=== PATIENT | male | born 1955 | race African-American/Black ===

== ENCOUNTER 2017-10-19 19:25 | Inpatient (IN) ==
[2017-10-19 21:11] LABS: Basophils % 0.1 % (0.0-0.8); Hematocrit 34.3 VOL% (42.0-52.0); Hemoglobin 11.2 GM/DL (14.0-18.0); Immature Granulocytes % 2.2 %; Immature Granulocytes Absolute 0.23 #; Lymphocytes # 0.2 10*3/uL (1.4-4.0); Mean Corpuscular HGB Conc 32.7 GM/DL (32-36); Mean Corpuscular Hemoglobin 32 PG (27-34); Mean Corpuscular Volume 96.9 FL (87-102); Mean Platelet Volume 11.2 FL (9.6-12.0); Monocytes # 0.4 10*3/uL (0.11-0.8); Neutrophils # 9.4 10*3/uL (1.4-7.4); Neutrophils % 91.7 % (38.7-73.9); Red Blood Count 3.54 MC/CUMM (3.8-5.5); Red Cell Distribution Width 17.7 % (9.3-17.3); White Blood Count 10.3 T/CUMM (4-12)
[2017-10-19 21:25] LABS: Platelet Count 71 T/CUMM (130-400)
[2017-10-19 21:38] LABS: Alanine Aminotransferase 17 U/L (16-61); Albumin 3.5 G/DL (3.4-5.0); Alkaline Phosphatase 94 U/L (45-117); Amylase 107 U/L (25-115); Aspartate Amino Transferase 29 U/L (0-37); Blood Urea Nitrogen 51 MG/DL (7-18); Calcium 9.4 MG/DL (8.5-10.1); Glucose 94 MG/DL (74-106); Osmolality,Calculated 286.8 MOS/KG (273-304); Potassium 3.9 MMOL/L (3.5-5.1); Sodium 137 MMOL/L (136-145); Total Protein 6.8 G/DL (6.4-8.3)
[2017-10-19 21:42] LABS: Lactic Acid 2.3 MMOL/L (0.4-2.0); Troponin I Only 0.103 NG/ML (0.00-0.045)
[2017-10-19 22:35] LABS: Band Neutrophils 1 % (0-10); Lymphocytes 2 % (20-55); Platelet Estimate Decreased; Segmented Neutrophils 94 % (50-85); Total Cells Counted 100
[2017-10-20 00:07] LABS: INR 1.1; PT Patient Result 11.4 SECS; Partial Thromboplastin Time 29.5 SECS (0-40)
[2017-10-20 00:57] LABS: Lactic Acid 2.8 MMOL/L (0.4-2.0)
[2017-10-20 04:18] LABS: Basophils % 0.1 % (0.0-0.8); Hematocrit 32.9 VOL% (42.0-52.0); Immature Granulocytes % 2.2 %; Lymphocytes # 0.1 10*3/uL (1.4-4.0); Lymphocytes % 1.6 % (21.2-54.2); Mean Corpuscular HGB Conc 33.4 GM/DL (32-36); Mean Corpuscular Hemoglobin 32 PG (27-34); Mean Corpuscular Volume 95.4 FL (87-102); Mean Platelet Volume 10.8 FL (9.6-12.0); Monocytes # 0.5 10*3/uL (0.11-0.8); Neutrophils % 90.1 % (38.7-73.9); Platelet Count 63 T/CUMM (130-400); Red Blood Count 3.45 MC/CUMM (3.8-5.5); Red Cell Distribution Width 17.7 % (9.3-17.3); White Blood Count 8.9 T/CUMM (4-12)
[2017-10-20 04:27] LABS: Albumin 3.2 G/DL (3.4-5.0); Bilirubin,Total 0.5 MG/DL (0.2-1.0); Calcium 9.2 MG/DL (8.5-10.1); Osmolality,Calculated 285.1 MOS/KG (273-304); Potassium 3.9 MMOL/L (3.5-5.1); Total Protein 6.2 G/DL (6.4-8.3)
[2017-10-20 04:31] LABS: Albumin 3.1 G/DL (3.4-5.0); Calcium 9.2 MG/DL (8.5-10.1); Osmolality,Calculated 285.1 MOS/KG (273-304); Potassium 4.1 MMOL/L (3.5-5.1)
[2017-10-20 04:42] LABS: Band Neutrophils 11 % (0-10); Lymphocytes 2 % (20-55); Segmented Neutrophils 81 % (50-85); Total Cells Counted 100
[2017-10-20 04:43] LABS: Hypochromasia 1+; Macrocytosis Slight; Ovalocytes Slight; Platelet Estimate Decreased
[2017-10-21 07:17] LABS: Basophils % 0.3 % (0.0-0.8); Eosinophils % 0.6 % (0.00-10.9); Hematocrit 29.1 VOL% (42.0-52.0); Immature Granulocytes % 1.2 %; Immature Granulocytes Absolute 0.08 #; Lymphocytes # 0.4 10*3/uL (1.4-4.0); Lymphocytes % 5.9 % (21.2-54.2); Mean Corpuscular HGB Conc 34.4 GM/DL (32-36); Mean Corpuscular Hemoglobin 32 PG (27-34); Mean Corpuscular Volume 93.3 FL (87-102); Mean Platelet Volume 12.1 FL (9.6-12.0); Monocytes # 0.5 10*3/uL (0.11-0.8); Monocytes % 7.1 % (1.7-12.7); Neutrophils # 5.9 10*3/uL (1.4-7.4); Neutrophils % 84.9 % (38.7-73.9); Platelet Count 68 T/CUMM (130-400); Red Blood Count 3.12 MC/CUMM (3.8-5.5); Red Cell Distribution Width 17.7 % (9.3-17.3); White Blood Count 6.9 T/CUMM (4-12)
[2017-10-21 07:46] LABS: Calcium 9.1 MG/DL (8.5-10.1); Osmolality,Calculated 279.1 MOS/KG (273-304); Potassium 4.5 MMOL/L (3.5-5.1)
[2017-10-21 07:50] LABS: Macrocytosis 1+; Platelet Estimate Decreased; Polychromasia Slight; Target Cells Slight
[2017-10-22 05:44] LABS: Basophils % 0.3 % (0.0-0.8); Eosinophils % 0.3 % (0.00-10.9); Hematocrit 31.4 VOL% (42.0-52.0); Hemoglobin 10.2 GM/DL (14.0-18.0); Immature Granulocytes Absolute 0.06 #; Lymphocytes # 0.4 10*3/uL (1.4-4.0); Lymphocytes % 7.1 % (21.2-54.2); Mean Corpuscular HGB Conc 32.5 GM/DL (32-36); Mean Corpuscular Hemoglobin 31 PG (27-34); Mean Corpuscular Volume 95.7 FL (87-102); Mean Platelet Volume 11.7 FL (9.6-12.0); Monocytes # 0.5 10*3/uL (0.11-0.8); Monocytes % 8.3 % (1.7-12.7); Neutrophils # 5.1 10*3/uL (1.4-7.4); Platelet Count 92 T/CUMM (130-400); Red Blood Count 3.28 MC/CUMM (3.8-5.5); Red Cell Distribution Width 17.2 % (9.3-17.3); White Blood Count 6.2 T/CUMM (4-12)
[2017-10-22 06:26] LABS: Calcium 9.5 MG/DL (8.5-10.1); Osmolality,Calculated 276.7 MOS/KG (273-304); Potassium 4.7 MMOL/L (3.5-5.1)
[2017-10-22 06:29] LABS: Macrocytosis 1+
[2017-10-22 06:30] LABS: Ovalocytes Slight; Platelet Estimate Decreased
[2017-10-27 20:58] LABS: Troponin I Only 0.043 NG/ML (0.00-0.045)
[2017-10-28 06:33] LABS: Basophils % 0.3 % (0.0-0.8); Eosinophils % 0.5 % (0.00-10.9); Hematocrit 25.9 VOL% (42.0-52.0); Immature Granulocytes % 0.7 %; Immature Granulocytes Absolute 0.05 #; Lymphocytes # 0.7 10*3/uL (1.4-4.0); Lymphocytes % 8.7 % (21.2-54.2); Mean Corpuscular HGB Conc 34.7 GM/DL (32-36); Mean Corpuscular Hemoglobin 31 PG (27-34); Mean Corpuscular Volume 89.9 FL (87-102); Mean Platelet Volume 9.7 FL (9.6-12.0); Monocytes # 0.8 10*3/uL (0.11-0.8); Neutrophils % 78.8 % (38.7-73.9); Platelet Count 226 T/CUMM (130-400); Red Blood Count 2.88 MC/CUMM (3.8-5.5); Red Cell Distribution Width 17.6 % (9.3-17.3); White Blood Count 7.6 T/CUMM (4-12)
[2017-10-28 07:06] LABS: Calcium 9.3 MG/DL (8.5-10.1); Osmolality,Calculated 281.1 MOS/KG (273-304); Potassium 4.4 MMOL/L (3.5-5.1)
[2017-10-28 07:07] LABS: Troponin I Only 0.036 NG/ML (0.00-0.045)
[2017-10-30 04:26] LABS: Basophils % 0.2 % (0.0-0.8); Eosinophils % 0.1 % (0.00-10.9); Hematocrit 28.8 VOL% (42.0-52.0); Hemoglobin 9.5 GM/DL (14.0-18.0); Immature Granulocytes % 0.6 %; Immature Granulocytes Absolute 0.06 #; Lymphocytes # 0.9 10*3/uL (1.4-4.0); Lymphocytes % 9.3 % (21.2-54.2); Mean Corpuscular Hemoglobin 31 PG (27-34); Mean Corpuscular Volume 92.6 FL (87-102); Mean Platelet Volume 9.5 FL (9.6-12.0); Monocytes % 11.2 % (1.7-12.7); Neutrophils # 7.3 10*3/uL (1.4-7.4); Neutrophils % 78.6 % (38.7-73.9); Platelet Count 350 T/CUMM (130-400); Red Blood Count 3.11 MC/CUMM (3.8-5.5); Red Cell Distribution Width 17.7 % (9.3-17.3); White Blood Count 9.3 T/CUMM (4-12)
[2017-10-30 04:52] LABS: Calcium 9.6 MG/DL (8.5-10.1); Osmolality,Calculated 273.4 MOS/KG (273-304); Potassium 4.5 MMOL/L (3.5-5.1)
[2017-10-30 11:36] VITALS: BP 107/76
== END 2017-10-30 15:24 | disposition home or self-care (01) | DRG 871 ==
LOC: EDBD → EDUNIT# → N.ED 19:25 → SUATTDRO 10-20 01:53 → N.EDINP 10-20 01:53 → N.2E 10-20 03:50
PROVIDERS: ADMIT Internal Medicine; ATTEND Internal Medicine Cardiovascular Disease

== ENCOUNTER 2017-11-08 14:20 | Inpatient (IN) ==
[2017-11-08 15:06] LABS: Basophils % 0.1 % (0.0-0.8); Eosinophils % 0.1 % (0.00-10.9); Hematocrit 25.4 VOL% (42.0-52.0); Hemoglobin 8.2 GM/DL (14.0-18.0); Immature Granulocytes % 0.9 %; Immature Granulocytes Absolute 0.13 #; Lymphocytes # 0.6 10*3/uL (1.4-4.0); Mean Corpuscular HGB Conc 32.3 GM/DL (32-36); Mean Corpuscular Hemoglobin 31 PG (27-34); Mean Corpuscular Volume 95.5 FL (87-102); Monocytes # 1.2 10*3/uL (0.11-0.8); Monocytes % 8.7 % (1.7-12.7); Neutrophils # 12.2 10*3/uL (1.4-7.4); Neutrophils % 86.2 % (38.7-73.9); Platelet Count 202 T/CUMM (130-400); Red Blood Count 2.66 MC/CUMM (3.8-5.5); Red Cell Distribution Width 18.1 % (9.3-17.3); White Blood Count 14.1 T/CUMM (4-12)
[2017-11-08 15:33] LABS: Lactic Acid 2.7 MMOL/L (0.4-2.0)
[2017-11-08 15:40] LABS: Alanine Aminotransferase 34 U/L (16-61); Albumin 2.5 G/DL (3.4-5.0); Alkaline Phosphatase 96 U/L (45-117); Aspartate Amino Transferase 47 U/L (0-37); Blood Urea Nitrogen 31 MG/DL (7-18); Glucose 91 MG/DL (74-106); Osmolality,Calculated 276.1 MOS/KG (273-304); Potassium 3.5 MMOL/L (3.5-5.1); Sodium 135 MMOL/L (136-145); Total Protein 8.2 G/DL (6.4-8.3)
[2017-11-08 16:03] LABS: Lymphocytes 5 % (20-55); Platelet Estimate Normal; Segmented Neutrophils 92 % (50-85); Total Cells Counted 100
[2017-11-08] MEDS ORDERED: cefTRIAXone 1,000 MG in SODIUM CHLORIDE 0.9% 100 ML IV STA (16:14)
[2017-11-08] MEDS ORDERED: SODIUM CHLORIDE 0.9% 0 ML IV ONE (16:39)
[2017-11-08] MEDS ORDERED: SODIUM CHLORIDE 0.9% 1,450 ML IV ONE (16:52)
[2017-11-08] MEDS ORDERED: NOREPINEPHRINE 8 MG in SODIUM CHLORIDE 0.9% 242 ML IV PRN (16:52)
[2017-11-08] MEDS ORDERED: VANCOMYCIN INJ 750 MG in SODIUM CHLORIDE 0.9% 250 ML IV SCH (17:00)
[2017-11-08] MEDS ORDERED: PIPERACILLIN/TAZOBACTAM 3,375 MG in SODIUM CHLORIDE 0.9% 100 ML IV SCH (17:00)
[2017-11-08] MEDS ORDERED: ALBUTEROL/IPRATROPIUM 3 ML NEB RESP TX PRN (19:42)
[2017-11-08] MEDS: AMIODARONE 200 MG TABLET PO SCH (20:18)
[2017-11-08] MEDS: ACETAMINOPHEN 325 MG TABLET PO PRN (20:18)
[2017-11-08] MEDS: DOCUSATE SODIUM 100 MG CAPSULE PO SCH (20:18)
[2017-11-08 21:00] LABS: Basophils % 0.1 % (0.0-0.8); Hematocrit 23.4 VOL% (42.0-52.0); Hemoglobin 7.5 GM/DL (14.0-18.0); Immature Granulocytes % 0.9 %; Immature Granulocytes Absolute 0.13 #; Lymphocytes # 0.4 10*3/uL (1.4-4.0); Lymphocytes % 2.4 % (21.2-54.2); Mean Corpuscular HGB Conc 32.1 GM/DL (32-36); Mean Corpuscular Hemoglobin 30 PG (27-34); Mean Corpuscular Volume 94.4 FL (87-102); Mean Platelet Volume 9.3 FL (9.6-12.0); Monocytes # 0.9 10*3/uL (0.11-0.8); Monocytes % 5.9 % (1.7-12.7); Neutrophils % 90.7 % (38.7-73.9); Platelet Count 159 T/CUMM (130-400); Red Blood Count 2.48 MC/CUMM (3.8-5.5); Red Cell Distribution Width 17.9 % (9.3-17.3); White Blood Count 14.3 T/CUMM (4-12)
[2017-11-08 21:37] LABS: Lymphocytes 4 % (20-55); Segmented Neutrophils 91 % (50-85); Total Cells Counted 100
[2017-11-08 21:38] LABS: Platelet Estimate Normal
[2017-11-08] MEDS ORDERED: ZALEPLON 5 MG CAPSULE PO PRN (23:43)
[2017-11-08] MEDS: MORPHINE 4 MG/1 ML VIAL IV PRN (23:55)
[2017-11-09] MEDS ORDERED: NOREPINEPHRINE 4 MG/4 ML VIAL IV ONE (01:17)
[2017-11-09 04:29] LABS: Basophils % 0.1 % (0.0-0.8); Hematocrit 22.4 VOL% (42.0-52.0); Hemoglobin 7.4 GM/DL (14.0-18.0); Immature Granulocytes % 0.6 %; Immature Granulocytes Absolute 0.12 #; Lymphocytes # 0.7 10*3/uL (1.4-4.0); Lymphocytes % 3.5 % (21.2-54.2); Mean Corpuscular Hemoglobin 30 PG (27-34); Mean Corpuscular Volume 91.8 FL (87-102); Mean Platelet Volume 10.1 FL (9.6-12.0); Monocytes # 1.9 10*3/uL (0.11-0.8); Monocytes % 9.5 % (1.7-12.7); Neutrophils # 17.4 10*3/uL (1.4-7.4); Neutrophils % 86.3 % (38.7-73.9); Platelet Count 171 T/CUMM (130-400); Red Blood Count 2.44 MC/CUMM (3.8-5.5); Red Cell Distribution Width 18.1 % (9.3-17.3); White Blood Count 20.1 T/CUMM (4-12)
[2017-11-09 04:54] LABS: Albumin 2.2 G/DL (3.4-5.0); Bilirubin,Total 0.7 MG/DL (0.2-1.0); Calcium 9.2 MG/DL (8.5-10.1); Osmolality,Calculated 279.1 MOS/KG (273-304); Potassium 3.9 MMOL/L (3.5-5.1)
[2017-11-09 05:04] LABS: Band Neutrophils 1 % (0-10); Hypochromasia 1+; Lymphocytes 5 % (20-55); Microcytosis 1+; Platelet Estimate Adequate; Segmented Neutrophils 87 % (50-85); Total Cells Counted 100
[2017-11-09] MEDS: SEVELAMER CARBONATE 800 MG TABLET PO SCH ×3 (08:22→19:28)
[2017-11-09] MEDS: AMIODARONE 200 MG TABLET PO SCH ×2 (08:22→22:10)
[2017-11-09] MEDS: MULTIVITAMIN (BEROCCA) TABLET PO SCH (08:22)
[2017-11-09] MEDS: MORPHINE 4 MG/1 ML VIAL IV PRN ×2 (08:22→22:49)
[2017-11-09] MEDS ORDERED: SODIUM CHLORIDE 0.9% 1,000 ML IV PRN (10:33)
[2017-11-09] MEDS ORDERED: ALBUTEROL/IPRATROPIUM 3 ML NEB RESP TX PRN (12:03)
[2017-11-09] MEDS: PANTOPRAZOLE 40 MG VIAL IV SCH (13:12)
[2017-11-09] MEDS: PIPERACILLIN/TAZOBACTAM 3,375 MG in SODIUM CHLORIDE 0.9% 100 ML IV SCH (13:14)
[2017-11-09] MEDS ORDERED: METOPROLOL TARTRATE 25 MG TABLET PO SCH (16:34)
[2017-11-09] MEDS ORDERED: SODIUM CHLORIDE 0.45% 500 ML IV ONE (16:36)
[2017-11-09] MEDS: ASPIRIN EC 81 MG TABLET PO SCH (19:28)
[2017-11-09] MEDS: CARVEDILOL 6.25 MG TABLET PO SCH (22:10)
[2017-11-09] MEDS: DOCUSATE SODIUM 100 MG CAPSULE PO SCH (22:10)
[2017-11-10] MEDS: PIPERACILLIN/TAZOBACTAM 3,375 MG in SODIUM CHLORIDE 0.9% 100 ML IV SCH ×2 (01:44→12:37)
[2017-11-10 05:34] LABS: Basophils % 0.1 % (0.0-0.8); Eosinophils % 0.1 % (0.00-10.9); Hematocrit 28.4 VOL% (42.0-52.0); Immature Granulocytes % 0.6 %; Immature Granulocytes Absolute 0.09 #; Lymphocytes # 0.6 10*3/uL (1.4-4.0); Lymphocytes % 3.9 % (21.2-54.2); Mean Corpuscular HGB Conc 31.7 GM/DL (32-36); Mean Corpuscular Hemoglobin 30 PG (27-34); Mean Corpuscular Volume 93.7 FL (87-102); Mean Platelet Volume 10.8 FL (9.6-12.0); Monocytes # 1.6 10*3/uL (0.11-0.8); Monocytes % 10.8 % (1.7-12.7); Neutrophils # 12.5 10*3/uL (1.4-7.4); Neutrophils % 84.5 % (38.7-73.9); Platelet Count 143 T/CUMM (130-400); Red Blood Count 3.03 MC/CUMM (3.8-5.5); Red Cell Distribution Width 17.8 % (9.3-17.3); White Blood Count 14.8 T/CUMM (4-12)
[2017-11-10 05:35] LABS: Bilirubin,Total 1.2 MG/DL (0.2-1.0); Calcium 9.6 MG/DL (8.5-10.1); Osmolality,Calculated 271.4 MOS/KG (273-304); Total Protein 7.1 G/DL (6.4-8.3)
[2017-11-10 07:21] LABS: Band Neutrophils 1 % (0-10); Hypochromasia 1+; Lymphocytes 4 % (20-55); Platelet Estimate Adequate; Segmented Neutrophils 89 % (50-85); Total Cells Counted 100
[2017-11-10] MEDS: SEVELAMER CARBONATE 800 MG TABLET PO SCH ×3 (10:22→19:25)
[2017-11-10] MEDS: MORPHINE 4 MG/1 ML VIAL IV PRN (10:23)
[2017-11-10] MEDS: CARVEDILOL 6.25 MG TABLET PO SCH ×2 (10:23→20:14)
[2017-11-10] MEDS: MULTIVITAMIN (BEROCCA) TABLET PO SCH (10:23)
[2017-11-10] MEDS: PANTOPRAZOLE 40 MG VIAL IV SCH (10:23)
[2017-11-10] MEDS: ASPIRIN EC 81 MG TABLET PO SCH (10:23)
[2017-11-10] MEDS: AMIODARONE 200 MG TABLET PO SCH ×2 (10:23→20:14)
[2017-11-10] MEDS ORDERED: LACTULOSE 20 GM/30 ML UDCUP PO PRN (15:07)
[2017-11-10] MEDS ORDERED: CIPROFLOXACIN INJ 400 MG in PREMIX 1 EACH IV SCH (18:00)
[2017-11-10] MEDS: POLYETHYLENE GLYCOL POWDER 17 GM PACK PO SCH (19:25)
[2017-11-10] MEDS: CIPROFLOXACIN INJ 200 MG in PREMIX 1 EACH IV SCH (19:26)
[2017-11-10] MEDS: DOCUSATE SODIUM 100 MG CAPSULE PO SCH (20:14)
[2017-11-10] MEDS: CEFTAROLINE 400 MG in SODIUM CHLORIDE 0.9% 100 ML IV SCH (20:14)
[2017-11-10] MEDS: ACETAMINOPHEN 325 MG TABLET PO PRN (23:54)
[2017-11-11 05:14] LABS: Basophils % 0.2 % (0.0-0.8); Eosinophils # 0.1 10*3/uL (0.0-0.87); Eosinophils % 0.3 % (0.00-10.9); Hematocrit 27.2 VOL% (42.0-52.0); Hemoglobin 8.7 GM/DL (14.0-18.0); Immature Granulocytes % 0.9 %; Immature Granulocytes Absolute 0.14 #; Lymphocytes # 0.8 10*3/uL (1.4-4.0); Lymphocytes % 4.6 % (21.2-54.2); Mean Corpuscular Hemoglobin 30 PG (27-34); Mean Corpuscular Volume 92.5 FL (87-102); Monocytes # 1.5 10*3/uL (0.11-0.8); Monocytes % 8.9 % (1.7-12.7); Neutrophils # 13.9 10*3/uL (1.4-7.4); Neutrophils % 85.1 % (38.7-73.9); Platelet Count 138 T/CUMM (130-400); Red Blood Count 2.94 MC/CUMM (3.8-5.5); Red Cell Distribution Width 17.4 % (9.3-17.3); White Blood Count 16.4 T/CUMM (4-12)
[2017-11-11 05:35] LABS: Hypochromasia 1+; Lymphocytes 3 % (20-55); Platelet Estimate Normal; Segmented Neutrophils 93 % (50-85); Total Cells Counted 100
[2017-11-11 05:36] LABS: Microcytosis Slight; Ovalocytes Slight
[2017-11-11 05:45] LABS: Calcium 9.3 MG/DL (8.5-10.1); Osmolality,Calculated 281.1 MOS/KG (273-304); Potassium 4.1 MMOL/L (3.5-5.1)
[2017-11-11] MEDS ORDERED: ACETAMINOPHEN 500 MG TABLET PO ONE (07:05)
[2017-11-11] MEDS ORDERED: ACETAMINOPHEN 325 MG TABLET PO PRN (07:05)
[2017-11-11] MEDS: PANTOPRAZOLE 40 MG VIAL IV SCH (08:23)
[2017-11-11] MEDS: ASPIRIN EC 81 MG TABLET PO SCH (08:23)
[2017-11-11] MEDS: POLYETHYLENE GLYCOL POWDER 17 GM PACK PO SCH (08:23)
[2017-11-11] MEDS: SEVELAMER CARBONATE 800 MG TABLET PO SCH ×3 (08:24→17:38)
[2017-11-11] MEDS: CARVEDILOL 6.25 MG TABLET PO SCH (08:24)
[2017-11-11] MEDS: AMIODARONE 200 MG TABLET PO SCH (08:24)
[2017-11-11] MEDS: MULTIVITAMIN (BEROCCA) TABLET PO SCH (08:24)
[2017-11-11] MEDS ORDERED: TUBERCULIN SKIN TEST 0.1 ML SYRINGE INTRADERM ONE (10:00)
[2017-11-11] MEDS: CEFTAROLINE 400 MG in SODIUM CHLORIDE 0.9% 100 ML IV SCH (10:01)
[2017-11-11] MEDS: CARVEDILOL 3.125 MG TABLET PO SCH (13:47)
[2017-11-11] MEDS ORDERED: ONDANSETRON 4 MG/2 ML VIAL IV PRN (13:58)
[2017-11-11] MEDS: CIPROFLOXACIN INJ 200 MG in PREMIX 1 EACH IV SCH (17:40)
[2017-11-12] MEDS: CEFTAROLINE 400 MG in SODIUM CHLORIDE 0.9% 100 ML IV SCH ×2 (00:04→09:03)
[2017-11-12] MEDS: DOCUSATE SODIUM 100 MG CAPSULE PO SCH (00:04)
[2017-11-12] MEDS: CARVEDILOL 3.125 MG TABLET PO SCH ×2 (00:04→09:05)
[2017-11-12] MEDS: MORPHINE 4 MG/1 ML VIAL IV PRN (07:52)
[2017-11-12] MEDS ORDERED: AMIODARONE 200 MG TABLET PO SCH (09:00)
[2017-11-12] MEDS: PANTOPRAZOLE 40 MG VIAL IV SCH (09:04)
[2017-11-12] MEDS: MULTIVITAMIN (BEROCCA) TABLET PO SCH (09:04)
[2017-11-12] MEDS: SEVELAMER CARBONATE 800 MG TABLET PO SCH ×2 (09:04→13:40)
[2017-11-12] MEDS: POLYETHYLENE GLYCOL POWDER 17 GM PACK PO SCH (09:05)
[2017-11-12] MEDS: ASPIRIN EC 81 MG TABLET PO SCH (09:06)
[2017-11-12 16:29] VITALS: BP 115/66
== END 2017-11-12 16:24 | DRG 871 ==
LOC: EDUNIT# → EDBD → N.ED 14:20 → SUATTDRO 16:50 → N.EDINP 16:50 → N.CC 19:52
PROVIDERS: ADMIT Internal Medicine; ATTEND Family Medicine

== ENCOUNTER 2017-12-13 04:15 | Inpatient (IN) ==
[2017-12-13] MEDS ORDERED: KETOROLAC 30 MG/1 ML VIAL IV STA (05:28)
[2017-12-13 05:38] LABS: Basophils # 0.1 10*3/uL (0.0-0.2); Basophils % 0.6 % (0.0-0.8); Eosinophils # 0.1 10*3/uL (0.0-0.87); Eosinophils % 1.3 % (0.00-10.9); Hematocrit 22.1 VOL% (42.0-52.0); Hemoglobin 6.8 GM/DL (14.0-18.0); Immature Granulocytes % 0.5 %; Immature Granulocytes Absolute 0.04 #; Lymphocytes # 1.4 10*3/uL (1.4-4.0); Lymphocytes % 16.3 % (21.2-54.2); Mean Corpuscular HGB Conc 30.8 GM/DL (32-36); Mean Corpuscular Hemoglobin 28 PG (27-34); Mean Corpuscular Volume 92.1 FL (87-102); Mean Platelet Volume 11.2 FL (9.6-12.0); Monocytes # 0.6 10*3/uL (0.11-0.8); Monocytes % 7.6 % (1.7-12.7); Neutrophils # 6.2 10*3/uL (1.4-7.4); Neutrophils % 73.7 % (38.7-73.9); Platelet Count 141 T/CUMM (130-400); Red Cell Distribution Width 16.6 % (9.3-17.3); White Blood Count 8.4 T/CUMM (4-12)
[2017-12-13 05:52] LABS: Alanine Aminotransferase 11 U/L (16-61); Albumin 1.7 G/DL (3.4-5.0); Alkaline Phosphatase 107 U/L (45-117); Aspartate Amino Transferase 16 U/L (0-37); Bilirubin,Total < 0.39 MG/DL (0.2-1.0); Blood Urea Nitrogen 20 MG/DL (7-18); Calcium 9.5 MG/DL (8.5-10.1); Glucose 84 MG/DL (74-106); Osmolality,Calculated 280.4 MOS/KG (273-304); Potassium 3.8 MMOL/L (3.5-5.1); Sodium 140 MMOL/L (136-145); Total Protein 7.8 G/DL (6.4-8.3)
[2017-12-13 05:55] LABS: Troponin I Only 0.438 NG/ML (0.00-0.045)
[2017-12-13] MEDS ORDERED: DEXTROSE 50% 25 GM/50 ML VIAL IV PRN (07:08)
[2017-12-13] MEDS ORDERED: GLUCAGON 1 MG VIAL IM PRN (07:08)
[2017-12-13] MEDS ORDERED: ONDANSETRON 4 MG/2 ML VIAL IV PRN (08:12)
[2017-12-13] MEDS ORDERED: ACETAMINOPHEN 325 MG TABLET PO PRN (08:12)
[2017-12-13] MEDS ORDERED: SODIUM CHLORIDE 0.9% 1,000 ML IV PRN (08:18)
[2017-12-13] MEDS: ASPIRIN EC 81 MG TABLET PO SCH (11:27)
[2017-12-13] MEDS: MULTIVITAMIN (BEROCCA) TABLET PO SCH (11:27)
[2017-12-13] MEDS: cloNIDine 0.1 MG TABLET PO SCH ×2 (11:28→21:24)
[2017-12-13] MEDS: DOCUSATE SODIUM 100 MG CAPSULE PO SCH ×2 (11:28→21:23)
[2017-12-13] MEDS: PANTOPRAZOLE 40 MG TABLET PO SCH (11:28)
[2017-12-13] MEDS: CARVEDILOL 6.25 MG TABLET PO SCH ×2 (11:28→21:23)
[2017-12-13] MEDS: AMIODARONE 200 MG TABLET PO SCH ×2 (11:28→21:23)
[2017-12-13] MEDS: POLYETHYLENE GLYCOL POWDER 17 GM PACK PO SCH (11:28)
[2017-12-13] MEDS: SEVELAMER CARBONATE 800 MG TABLET PO SCH ×2 (16:23→17:19)
[2017-12-13] MEDS: traZODone 50 MG TABLET PO PRN (21:23)
[2017-12-13 22:14] LABS: Hematocrit 25.9 VOL% (42.0-52.0)
[2017-12-13 22:15] LABS: Hemoglobin 8.3 GM/DL (14.0-18.0)
[2017-12-14] MEDS: ALBUTEROL/IPRATROPIUM 3 ML NEB RESP TX PRN (00:30)
[2017-12-14] MEDS ORDERED: methylPREDNISolone SOD SUC 125 MG/2 ML VIAL ONE (00:36)
[2017-12-14] MEDS ORDERED: methylPREDNISolone SOD SUC 125 MG/2 ML VIAL IV ONE (00:42)
[2017-12-14 01:07] LABS: Basophils % 0.6 % (0.0-0.8); Eosinophils % 2.2 % (0.00-10.9); Hematocrit 27.1 VOL% (42.0-52.0); Hemoglobin 8.6 GM/DL (14.0-18.0); Immature Granulocytes % 0.4 %; Lymphocytes % 18.6 % (21.2-54.2); Mean Corpuscular HGB Conc 31.7 GM/DL (32-36); Mean Corpuscular Hemoglobin 29 PG (27-34); Mean Corpuscular Volume 90.9 FL (87-102); Mean Platelet Volume 10.7 FL (9.6-12.0); Monocytes % 6.3 % (1.7-12.7); Neutrophils % 71.9 % (38.7-73.9); Platelet Count 158 T/CUMM (130-400); Red Blood Count 2.98 MC/CUMM (3.8-5.5); Red Cell Distribution Width 16.2 % (9.3-17.3); White Blood Count 8.3 T/CUMM (4-12)
[2017-12-14 01:08] LABS: Basophils # 0.1 10*3/uL (0.0-0.2); Eosinophils # 0.2 10*3/uL (0.0-0.87); Immature Granulocytes Absolute 0.03 #; Lymphocytes # 1.5 10*3/uL (1.4-4.0); Monocytes # 0.5 10*3/uL (0.11-0.8); Neutrophils # 5.9 10*3/uL (1.4-7.4)
[2017-12-14 01:21] LABS: Calcium 9.3 MG/DL (8.5-10.1); Osmolality,Calculated 278.7 MOS/KG (273-304); Potassium 4.2 MMOL/L (3.5-5.1)
[2017-12-14 01:41] LABS: Calcium 9.6 MG/DL (8.5-10.1); Osmolality,Calculated 280.5 MOS/KG (273-304); Potassium 4.2 MMOL/L (3.5-5.1)
[2017-12-14] MEDS: DOCUSATE SODIUM 100 MG CAPSULE PO SCH ×2 (09:09→22:04)
[2017-12-14] MEDS: MULTIVITAMIN (BEROCCA) TABLET PO SCH (09:09)
[2017-12-14] MEDS: CARVEDILOL 6.25 MG TABLET PO SCH ×2 (09:09→22:04)
[2017-12-14] MEDS: ASPIRIN EC 81 MG TABLET PO SCH (09:09)
[2017-12-14] MEDS: SEVELAMER CARBONATE 800 MG TABLET PO SCH ×3 (09:09→18:00)
[2017-12-14] MEDS: cloNIDine 0.1 MG TABLET PO SCH ×2 (09:09→22:04)
[2017-12-14] MEDS: POLYETHYLENE GLYCOL POWDER 17 GM PACK PO SCH (09:10)
[2017-12-14] MEDS: PANTOPRAZOLE 40 MG TABLET PO SCH (09:10)
[2017-12-14] MEDS: AMIODARONE 200 MG TABLET PO SCH ×2 (09:10→22:04)
[2017-12-14] MEDS: ALBUTEROL 2.5 MG/3 ML NEB RESP TX PRN (21:33)
[2017-12-14] MEDS: traZODone 50 MG TABLET PO PRN (22:04)
[2017-12-15] MEDS: ALBUTEROL/IPRATROPIUM 3 ML NEB RESP TX PRN ×3 (02:10→14:09)
[2017-12-15] MEDS: PANTOPRAZOLE 40 MG TABLET PO SCH (09:36)
[2017-12-15] MEDS: SEVELAMER CARBONATE 800 MG TABLET PO SCH ×4 (09:36→17:50)
[2017-12-15] MEDS: DOCUSATE SODIUM 100 MG CAPSULE PO SCH ×2 (09:36→21:12)
[2017-12-15] MEDS: CARVEDILOL 6.25 MG TABLET PO SCH (09:36)
[2017-12-15] MEDS: cloNIDine 0.1 MG TABLET PO SCH ×2 (09:36→21:12)
[2017-12-15] MEDS: MULTIVITAMIN (BEROCCA) TABLET PO SCH (09:36)
[2017-12-15] MEDS: ASPIRIN EC 81 MG TABLET PO SCH (09:36)
[2017-12-15] MEDS: AMIODARONE 200 MG TABLET PO SCH ×2 (09:36→21:13)
[2017-12-15] MEDS: POLYETHYLENE GLYCOL POWDER 17 GM PACK PO SCH (09:40)
[2017-12-15] MEDS ORDERED: CARVEDILOL 3.125 MG TABLET PO SCH (12:15)
[2017-12-15] MEDS: DESITIN 4OZ/NYSTATIN 15 GRAM MIXTURE PASTE TOP SCH ×2 (17:49→21:12)
[2017-12-15] MEDS: ALBUTEROL 2.5 MG/3 ML NEB RESP TX PRN (18:21)
[2017-12-15] MEDS: traZODone 50 MG TABLET PO PRN (21:13)
[2017-12-16] MEDS: ALBUTEROL/IPRATROPIUM 3 ML NEB RESP TX PRN (00:20)
[2017-12-16 08:10] LABS: Allen Test Positive
[2017-12-16 08:12] LABS: ABG Base Excess -4.2 MMOL/L (-2.5-2.5); ABG HCO3 19.7 MMOL/L (20-26); ABG PCO2 31.8 MM HG (35-48); ABG PH 7.409 (7.35-7.45); ABG PO2 129.6 MM HG (80-95); ABG TCO2 20.6 MMOL/L (23-27)
[2017-12-16] MEDS ORDERED: INSULIN REGULAR 100 UNIT/ML ONE (08:46)
[2017-12-16] MEDS ORDERED: NOREPINEPHRINE 4 MG/4 ML VIAL IV ONE (09:10)
[2017-12-16] MEDS ORDERED: VECURONIUM 10 MG VIAL IV ONE (09:22)
[2017-12-16] MEDS ORDERED: ETOMIDATE 20 MG/10 ML VIAL IV ONE (09:22)
[2017-12-16 09:56] VITALS: BP 102/78
== END 2017-12-16 09:18 | disposition expired | DRG 551 ==
LOC: EDUNIT# → EDBD → N.ED 04:15 → N.EDINP 04:15 → SUATTDRO 08:12 → N.5E 09:21 → N.ICU 12-16 08:54
PROVIDERS: ADMIT Internal Medicine Geriatric Medicine; ATTEND Internal Medicine